=== PATIENT | male | born 1960 | race Caucasian/White ===

== ENCOUNTER 2017-08-23 09:42 | Emergency (ER) | payer MEDICAID ==
[~2017-08-23] VITALS: Ht 182.9 cm; Wt 80.0 kg
[~2017-08-23 09:42] MED LIST: AMLO10TA2 PO; PROP10TA PO
[2017-08-23 09:44] VITALS: BP 150/94
== END 2017-08-23 11:00 | disposition home or self-care (01) ==
LOC: ED 10:09
DX: J01.00 Acute maxillary sinusitis, unspecified (principal); K02.9 Dental caries, unspecified; I10 Essential (primary) hypertension
CPT/HCPCS: 99283

== ENCOUNTER 2021-02-08 11:48 | Emergency (ER) | payer MEDICAID ==
[~2021-02-08] VITALS: Ht 193 cm; Wt 75.6 kg
[~2021-02-08 11:48] MED LIST changes: +AMLO-211 PO; -AMLO10TA2 PO; -PROP10TA PO; +PROP10TA16 PO
[2021-02-08] MEDS ORDERED: SODIUM CHLORIDE FLUSH 10ML SYR IVF ONE (12:00)
[2021-02-08] MEDS ORDERED: SODIUM CHLORIDE 0.9% 1,000ML IVBOLUS ONE (12:00)
[2021-02-08 12:20] LABS: BASOPHILS % (AUTO) 0 % (0-1); EOSINOPHILS % (AUTO) 0 % (1-7); LYMPHOCYTES % (AUTO) 7 % (22-44); MEAN CORPUSCULAR HEMOGLOBIN 30.8 pg (27.5-34.5); MEAN CORPUSCULAR HGB CONC 33.7 g/dL (33.2-36.2); MEAN PLATELET VOLUME 8.8 fL (7.4-10.4); MONOCYTES % (AUTO) 3 % (2-9); NEUTROPHILS % (AUTO) 90 % (42-75); PLATELET COUNT 207 x10^3/uL (130-400); RED CELL DISTRIBUTION WIDTH 14.6 % (9.4-14.8)
[2021-02-08 12:33] LABS: ALBUMIN 4.5 g/dL (3.4-5.0); ANION GAP 7 mmol/L (5-15); CALCIUM 9.1 mg/dL (8.5-10.1); CHLORIDE 112 mmol/L (98-107)
[2021-02-08 12:39] LABS: ALANINE AMINOTRANSFERASE 17 U/L (12-78); ALKALINE PHOSPHATASE 74 U/L (45-117); BILIRUBIN,TOTAL 1.1 mg/dL (0.2-1.0); CREATININE 0.96 mg/dL (0.7-1.3); TOTAL PROTEIN 7.7 g/dL (6.4-8.2); TROPONIN I < 0.015 ng/mL (0.000-0.045)
--- NOTE | 2021-02-08 13:03 | NUR ---
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
[2021-02-08] MEDS ORDERED: ONDANSETRON 2MG/ML, 2ML ONE (13:15)
[2021-02-08] MEDS ORDERED: ONDANSETRON 2MG/ML, 2ML IVPush ONE (13:30)
[2021-02-08 13:37] LABS: MD SCAN
--- NOTE | 2021-02-08 13:51 | NUR ---
to and from ct. as
--- NOTE | 2021-02-08 14:39 | NUR ---
sts feels better, oob to urinate. as
[2021-02-08 15:26] VITALS: BP 151/107
--- NOTE | 2021-02-08 15:35 | NUR ---
awaiting dispo, nad. as
== END 2021-02-08 16:22 | disposition home or self-care (01) ==
LOC: ED 14:07
DX: R11.2 Nausea with vomiting, unspecified (principal); R42 Dizziness and giddiness; I10 Essential (primary) hypertension; R51.9 Headache, unspecified
CPT/HCPCS: 36415; 70450; 71045; 80053; 84484; 85025; 93005; 96374; 99285; J2405; J7030